=== PATIENT | female | born 1990 | race Caucasian/White ===

== ENCOUNTER 2021-04-07 05:32 | Inpatient (IN) ==
[2021-04-07] MEDS ORDERED: MEPERIDINE 50 MG/1 ML VIAL IV PRN (05:41)
[2021-04-07] MEDS ORDERED: ONDANSETRON 4 MG/2 ML VIAL IV PRN ×2 (05:41→13:22)
[2021-04-07] MEDS ORDERED: BUTORPHANOL 2 MG/ML VIAL IV PRN (05:41)
[2021-04-07] MEDS ORDERED: LACTATED RINGERS 1,000 ML IV SCH ×2 (06:00→07:30)
[2021-04-07] MEDS ORDERED: OXYTOCIN/LR 20 UNIT/1,000 ML BAG IV SCH (06:00)
[2021-04-07 06:40] LABS: Basophils % 0.3 % (0.0-0.8); Eosinophils # 0.1 10*3/uL (0.0-0.87); Eosinophils % 0.4 % (0.00-10.9); Hematocrit 34.4 VOL% (35.7-47.0); Hemoglobin 11.3 GM/DL (12.0-16.0); Immature Granulocytes % 1.1 %; Immature Granulocytes Absolute 0.15 #; Lymphocytes % 21.9 % (21.3-54.2); Mean Corpuscular HGB Conc 32.8 GM/DL (32-36); Mean Corpuscular Volume 87.8 FL (87-102); Mean Platelet Volume 11.2 FL (9.6-12.0); Monocytes % 7.1 % (1.7-12.7); Neutrophils % 69.2 % (38.7-73.9); Platelet Count 212 T/CUMM (130-400); Red Blood Count 3.92 MC/CUMM (3.8-5.5); Red Cell Distribution Width 17.1 % (9.3-17.3); White Blood Count 13.8 T/CUMM (4-12)
[2021-04-07 07:04] LABS: Albumin 2.8 G/DL (3.4-5.0); Bilirubin,Total 0.6 MG/DL (0.2-1.0); Calcium 8.6 MG/DL (8.5-10.1); Osmolality,Calculated 269.8 MOS/KG (273-304); Potassium 4.1 MMOL/L (3.5-5.1); Total Protein 6.4 G/DL (6.4-8.2)
[2021-04-07] MEDS ORDERED: ePHEDrine 50 MG/ML VIAL IV PRN (07:16)
[2021-04-07] MEDS ORDERED: LACTATED RINGERS 500 ML IV ONE (07:16)
[2021-04-07] MEDS ORDERED: LACTATED RINGERS 1,000 ML IV ONE ×2 (07:16→07:20)
[2021-04-07] MEDS ORDERED: NALOXONE 0.4 MG/ML VIAL IV PRN (07:16)
[2021-04-07] MEDS ORDERED: diphenhydrAMINE 50 MG/1 ML VIAL IV PRN ×2 (07:16)
[2021-04-07] MEDS ORDERED: FAMOTIDINE 20 MG/2 ML VIAL IV ONE (07:20)
[2021-04-07] MEDS ORDERED: CITRIC ACID/SODIUM CITRATE 30 ML UDCUP PO ONE (07:20)
[2021-04-07] MEDS ORDERED: fentaNYL 2 MCG/ROPIV 0.2% EPID 100 ML EPIDURAL SCH (07:30)
[2021-04-07 09:37] LABS: Bilirubin,Urine Negative (Negative); Blood, Urine Negative (Negative); Glucose,Urine (UA) Negative (Negative); Ketones,Urine 5 mg/dL (Negative); Mucus,Urine Occasional /LPF (Occasional); Nitrite,Urine Negative (Negative); Protein,Urine Negative; RBC,Urine 2 /HPF (0-4); Squamous Epithelial Cell,Urine Occasional /HPF (0-10); Urine Appearance CLEAR (Clear); Urine Color Yellow (Yellow); Urine Specific Gravity 1.006 (1.001-1.035); Urine Urobilinogen < 2.0 EU/DL (0.2-1.0)
[2021-04-07] MEDS ORDERED: TRANEXAMIC ACID 1,000 MG/10 ML VIAL ONE (09:47)
[2021-04-07] MEDS ORDERED: OXYTOCIN/LR 20 UNIT/1,000 ML BAG IV ONE ×2 (09:47→13:22)
[2021-04-07] MEDS ORDERED: miSOPROStoL 200 MCG TABLET ONE (09:47)
[2021-04-07] MEDS ORDERED: METHYLERGONOVINE 0.2 MG/1 ML AMP ONE (09:48)
[2021-04-07] MEDS ORDERED: CARBOPROST TROMETHAMINE 250 MCG/ML AMP IM ONE (09:48)
[2021-04-07] MEDS ORDERED: SODIUM CHLORIDE 0.9% 100 ML IV ONE (09:49)
[2021-04-07] MEDS ORDERED: ROPIVACAINE 0.5% 30 ML VIAL ONE (12:38)
[2021-04-07] MEDS ORDERED: fentaNYL 100 MCG/2 ML VIAL ONE (12:38)
[2021-04-07 13:18] LABS: Cord Arterial Blood HCO3 19.9 MMOL/L
[2021-04-07 13:21] LABS: Cord Venous Blood HCO3 21.4 MMOL/L; Cord Venous Blood PCO2 26.4 MMHG; Cord Venous Blood PO2 30.3
[2021-04-07] MEDS ORDERED: RHO(D) IMMUNE GLOBULIN 300 MCG SYRINGE IM ONE (13:22)
[2021-04-07] MEDS ORDERED: BENZOCAINE 20%/MENTHOL 0.5% SPRAY 56 GM CAN TOP PRN (13:22)
[2021-04-07] MEDS ORDERED: oxyCODONE/ACETAMINOPHEN 5-325 MG TABLET PO PRN ×2 (13:22)
[2021-04-07] MEDS ORDERED: ACETAMINOPHEN 325 MG TABLET PO PRN (13:22)
[2021-04-07] MEDS ORDERED: MEASLES/MUMPS/RUBELLA VACCINE 0.5 ML VIAL SUBCUT ONE (13:22)
[2021-04-07] MEDS ORDERED: BISACODYL 10 MG SUPP RECTAL PRN (13:22)
[2021-04-07] MEDS ORDERED: LANOLIN 50% CREAM 0.3 OZ TUBE TOP PRN (13:22)
[2021-04-07] MEDS ORDERED: WITCH HAZEL PADS 100/JAR TOP PRN (13:22)
[2021-04-07] MEDS ORDERED: HYDROCORTISONE 2.5% RECTAL CREAM 30 GM TUBE TOP PRN (13:22)
[2021-04-07] MEDS ORDERED: DIPH/TET/ACEL PERT BOOSTER VACCINE 0.5 ML VIAL IM ONE (13:22)
[2021-04-07] MEDS: DOCUSATE SODIUM 100 MG CAPSULE PO SCH (21:05)
[2021-04-08] MEDS: IBUPROFEN 800 MG TABLET PO PRN ×2 (03:09→18:14)
[2021-04-08 04:13] LABS: Basophils # 0.1 10*3/uL (0.0-0.2); Basophils % 0.3 % (0.0-0.8); Eosinophils # 0.2 10*3/uL (0.0-0.87); Hematocrit 30.2 VOL% (35.7-47.0); Hemoglobin 9.8 GM/DL (12.0-16.0); Immature Granulocytes % 0.8 %; Immature Granulocytes Absolute 0.12 #; Lymphocytes # 3.9 10*3/uL (1.4-4.0); Lymphocytes % 25.1 % (21.3-54.2); Mean Corpuscular HGB Conc 32.5 GM/DL (32-36); Mean Corpuscular Volume 88.3 FL (87-102); Mean Platelet Volume 10.6 FL (9.6-12.0); Monocytes % 7.8 % (1.7-12.7); Platelet Count 200 T/CUMM (130-400); Red Blood Count 3.42 MC/CUMM (3.8-5.5); Red Cell Distribution Width 17.1 % (9.3-17.3); White Blood Count 15.4 T/CUMM (4-12)
[2021-04-08] MEDS ORDERED: BETAMETH SODIUM PHOS/ACETATE 30 MG/5 ML VIAL ONE (07:55)
[2021-04-08] MEDS: DOCUSATE SODIUM 100 MG CAPSULE PO SCH ×2 (08:08→21:48)
[2021-04-09] MEDS: IBUPROFEN 800 MG TABLET PO PRN (04:39)
[2021-04-09] MEDS: DOCUSATE SODIUM 100 MG CAPSULE PO SCH (07:46)
[2021-04-09 07:54] VITALS: BP 106/61
== END 2021-04-09 14:57 | disposition home or self-care (01) | DRG 805 ==
LOC: N.LD 05:32
PROVIDERS: ADMIT Specialist; ATTEND Specialist